=== PATIENT | male | born 1995 | race Caucasian/White ===

== ENCOUNTER → 2020-09-11 08:56 | Outpatient (CLI) | payer SELFPAY ==
--- NOTE | 2020-09-11 09:10 | MRI_ITS ---
STUDY: MRI LUMBAR SPINE WITHOUT CONTRAST REASON FOR EXAM: Male, 25 years old. SPRAIN,FALL 1 YEAR AGO -- pain low back and rt hip since fall TECHNIQUE: Standardized fat and water weighted pulse sequences were obtained in the sagittal and axial planes. COMPARISON: None FINDINGS: T12-L1: Normal endplates. Normal disc height, hydration and morphology. Normal bilateral facet joints. Normal central canal and bilateral lateral recesses. Normal bilateral intervertebral neural foramina. Normal lumbar lordosis. There is no substantial scoliosis. Normal conus medullaris that terminates at the T11/T12 L1-2: Some disc desiccation but no disc protrusion, spinal stenosis, or neural foraminal stenosis. L2-3: Normal endplates. Normal disc height, hydration and morphology. Normal bilateral facet joints. Normal central canal and bilateral lateral recesses. Normal bilateral intervertebral neural foramina. L3-4: Normal endplates. Normal disc height, hydration and morphology. Normal bilateral facet joints. Normal central canal and bilateral lateral recesses. Normal bilateral intervertebral neural foramina. L4-5: Some disc desiccation but no disc protrusion, spinal stenosis, or neural foraminal stenosis. L5-S1: Suspect L5 spondylolysis with 2 mm of anterolisthesis of L5 on S1 consistent with grade 1 spondylolisthesis. No spinal stenosis but mild bilateral neural foraminal stenosis. Normal visualized sacral ala. Normal visualized paraspinous soft tissue structures. MRI/Spine Lumbar (Routine) IMPRESSION: Suspect L5 spondylolysis with grade 1 spondylolisthesis with mild bilateral neural foraminal stenosis. Electronically Signed: Mahesh Paredes MD at 10:39 EST Tel , Service support ,
== END ==
DX: S23.3XXA Sprain of ligaments of thoracic spine, initial encounter (principal); S33.5XXA Sprain of ligaments of lumbar spine, initial encounter; W19.XXXA Unspecified fall, initial encounter; M99.03 Segmental and somatic dysfunction of lumbar region; M99.02 Segmental and somatic dysfunction of thoracic region
CPT/HCPCS: 72148